=== PATIENT | female | born 1980 | race Caucasian/White ===

== ENCOUNTER 2019-03-19 13:23 | Emergency (ER) | payer MEDICAID ==
[~2019-03-19] VITALS: Ht 165.1 cm; Wt 109.0 kg
[~2019-03-19 13:23] MED LIST: BACI3.5O2 TOP; CETI10TA15 PO; CYCL-394 PO; DICY10CA88 PO; DOCU250C88 PO; GABA-532 PO; HALO10TA13 PO; HALO20TA7 PO; IBUP-1984 PO; LEVO150T PO; METF500T PO; MULT-1179 PO; NITR100C6 PO; ONDA4TAB6 PO; OXCA600T9 PO; SUMA25TA35 PO; TOPI200T PO; VENL150T3 PO
[2019-03-19] MEDS ORDERED: HYDROcodone/acetaminophen 5mg/325mg tablet PO ONE (13:40)
[2019-03-19] MEDS ORDERED: ketorolac trometh inj. 60 MG/2 ML VIAL IM ONE (13:40)
[2019-03-19 14:04] VITALS: BP 118/89
== END 2019-03-19 14:40 | disposition home or self-care (01) ==
LOC: ER 13:24
DX: G89.18 Other acute postprocedural pain (principal); R10.12 Left upper quadrant pain; G43.909 Migraine, unspecified, not intractable, without status migrainosus; I48.91 Unspecified atrial fibrillation; E11.9 Type 2 diabetes mellitus without complications; E03.9 Hypothyroidism, unspecified; G89.29 Other chronic pain; F12.90 Cannabis use, unspecified, uncomplicated; F15.90 Other stimulant use, unspecified, uncomplicated; Z90.49 Acquired absence of other specified parts of digestive tract; Z90.81 Acquired absence of spleen; Z90.411 Acquired partial absence of pancreas; Z98.890 Other specified postprocedural states; Z98.51 Tubal ligation status; Z88.2 Allergy status to sulfonamides; Z88.0 Allergy status to penicillin; Z88.8 Allergy status to other drugs, medicaments and biological substances; Z91.013 Allergy to seafood; Z91.018 Allergy to other foods; Z79.84 Long term (current) use of oral hypoglycemic drugs; Z79.899 Other long term (current) drug therapy
CPT/HCPCS: 96372; 99283; J1885

== ENCOUNTER 2019-12-30 16:16 | Emergency (ER) | payer MEDICAID ==
[~2019-12-30] VITALS: Ht 167.6 cm; Wt 129.0 kg
[2019-12-30 16:44] VITALS: BP 110/66
[2019-12-30 17:22] LABS: BASOPHILS # (AUTO) 0.3 X10'3 (0-0.2); BASOPHILS % (AUTO) 1.5 % (0-1); EOSINOPHILS # (AUTO) 0.6 X10'3 (0-0.9); EOSINOPHILS % (AUTO) 3.2 % (0-6); HEMATOCRIT 44.4 % (35.0-45.0); HEMOGLOBIN 14.9 g/dl (12.0-16.0); LYMPHOCYTES % (AUTO) 29.6 % (21-51); MEAN CORPUSCULAR HEMOGLOBIN 30.2 PG (27.0-31.0); MEAN CORPUSCULAR HGB CONC 33.5 g/dL (33.0-36.5); MEAN CORPUSCULAR VOLUME 90.1 FL (78-98); MEAN PLATELET VOLUME 8.4 FL (7.4-10.4); MONOCYTES % (AUTO) 9.9 % (2-12); NEUTROPHILS # (AUTO) 11.2 X10'3 (1.8-7.7); NEUTROPHILS % (AUTO) 55.8 % (42-75); PLATELET COUNT 456 X10'3 (140-440); RED BLOOD COUNT 4.92 X10'6 (4.20-5.60); RED CELL DISTRIBUTION WIDTH 14.1 % (11.5-14.5); WHITE BLOOD COUNT 20.2 X10'3 (4.5-11.0)
[2019-12-30 17:34] LABS: ALANINE AMINOTRANSFERASE 25 U/L (12-78); ALBUMIN 3.2 G/DL (3.4-5.0); ALBUMIN/GLOBULIN RATIO 0.7 (1.1-1.5); ALKALINE PHOSPHATASE 79 IU/L (46-116); ANION GAP 8 (8-16); ASPARTATE AMINO TRANSFERASE 15 U/L (10-37); BILIRUBIN,TOTAL 0.3 MG/DL (0.1-1.0); BLOOD UREA NITROGEN 21 MG/DL (7-18); BUN/CREATININE RATIO 26.9 (6.6-38.0); CALCIUM 9.2 MG/DL (8.5-10.1); CHLORIDE 107 MMOL/L (99-107); CREATININE 0.78 MG/DL (0.40-0.90); GLUCOSE 72 MG/DL (70-104); POTASSIUM 3.7 MMOL/L (3.5-5.1); SODIUM 143 MMOL/L (135-145); TOTAL CARBON DIOXIDE 28.2 MMOL/L (24-32); TOTAL PROTEIN 7.8 G/DL (6.4-8.2); eGFR 82 ML/MIN
[2019-12-30 17:38] LABS: TROPONIN I < 0.04 NG/ML (0.0-0.05)
[2019-12-30 18:39] LABS: TOTAL CELLS COUNTED 100
[2019-12-30 18:41] LABS: PLATELET ESTIMATE INCREASED
[2019-12-30] MEDS ORDERED: metoclopramide 5 mg/ml inj IV ONE (18:45)
[2019-12-30] MEDS ORDERED: diphenhydrAMINE 50 mg/ml inj IV ONE (18:45)
[2019-12-30] MEDS ORDERED: morphine 10mg/ml inj. IV ONE (18:45)
--- NOTE | 2019-12-30 18:59 | NUR ---
PT WENT TO MRI. SHE RECEIVED MORPHINE, IV BENADRYL, AND IV REGLAN. SHE IS AOX3. SHE REPORTS A HEADACHE PAIN 8/10 RIGHT SIDE OF HER HEAD. SHE REPORTS NUMBNESS AND TINGLING ON HER RIGHT SIDE OF HER BODY BUT HAS FULL MOVEMENT.
[2019-12-30 19:09] LABS: PARTIAL THROMBOPLASTIN TIME 32 SECONDS (22-32)
[2019-12-30] MEDS ORDERED: LIDOcaine 1% 30ml preserv. free vial SQ STA (19:59)
== END 2019-12-30 21:56 | disposition home or self-care (01) ==
LOC: ER 16:17
DX: G43.909 Migraine, unspecified, not intractable, without status migrainosus (principal); G44.209 Tension-type headache, unspecified, not intractable; I48.91 Unspecified atrial fibrillation; E11.9 Type 2 diabetes mellitus without complications; E03.9 Hypothyroidism, unspecified; G89.29 Other chronic pain; F41.9 Anxiety disorder, unspecified; F31.9 Bipolar disorder, unspecified; M54.2 Cervicalgia; F41.0 Panic disorder [episodic paroxysmal anxiety]; F20.9 Schizophrenia, unspecified; F12.90 Cannabis use, unspecified, uncomplicated; F15.90 Other stimulant use, unspecified, uncomplicated; Z90.49 Acquired absence of other specified parts of digestive tract; Z98.51 Tubal ligation status; Z98.890 Other specified postprocedural states; Z88.2 Allergy status to sulfonamides; Z88.0 Allergy status to penicillin; Z91.048 Other nonmedicinal substance allergy status; Z91.013 Allergy to seafood; Z79.899 Other long term (current) drug therapy
CPT/HCPCS: 36415; 64405; 64450; 70450; 70544; 70551; 71045; 80053; 84484; 85025; 85610; 85730; 93005; 96374; 96375; 99285; J1200; J2270; J2765; 99284

== ENCOUNTER 2020-06-10 13:18 | Emergency (ER) | payer MEDICAID ==
[~2020-06-10] VITALS: Ht 167.6 cm; Wt 136.0 kg
[~2020-06-10 13:18] MED LIST changes: -DOCU250C88 PO; +DOCU250C89 PO
--- NOTE | 2020-06-10 14:02 | NUR ---
Ultra sound at bedside.
[2020-06-10 14:12] LABS: BASOPHILS % (AUTO) 0.3 % (0-1); EOSINOPHILS # (AUTO) 0.3 X10'3 (0-0.9); EOSINOPHILS % (AUTO) 2.3 % (0-6); HEMATOCRIT 43.8 % (35.0-45.0); HEMOGLOBIN 14.6 g/dl (12.0-16.0); LYMPHOCYTES # (AUTO) 3.1 X10'3 (1.1-4.8); LYMPHOCYTES % (AUTO) 22.9 % (21-51); MEAN CORPUSCULAR HEMOGLOBIN 30.6 PG (27.0-31.0); MEAN CORPUSCULAR HGB CONC 33.4 g/dL (33.0-36.5); MEAN CORPUSCULAR VOLUME 91.4 FL (78-98); MEAN PLATELET VOLUME 9.5 FL (7.4-10.4); MONOCYTES # (AUTO) 1.4 X10'3 (0-0.9); MONOCYTES % (AUTO) 10.2 % (2-12); NEUTROPHILS # (AUTO) 8.7 X10'3 (1.8-7.7); NEUTROPHILS % (AUTO) 64.3 % (42-75); PLATELET COUNT 404 X10'3 (140-440); RED BLOOD COUNT 4.79 X10'6 (4.20-5.60); RED CELL DISTRIBUTION WIDTH 14.2 % (11.5-14.5); WHITE BLOOD COUNT 13.6 X10'3 (4.5-11.0)
[2020-06-10 14:23] LABS: D-DIMER 0.21 MG/L FEU (0-0.50); PARTIAL THROMBOPLASTIN TIME 30 SECONDS (22-32)
[2020-06-10 14:34] LABS: ALANINE AMINOTRANSFERASE 36 U/L (12-78); ALBUMIN 2.7 G/DL (3.4-5.0); ALBUMIN/GLOBULIN RATIO 0.6 (1.1-1.5); ALKALINE PHOSPHATASE 95 IU/L (46-116); ANION GAP 10 (8-16); ASPARTATE AMINO TRANSFERASE 16 U/L (10-37); BILIRUBIN,TOTAL 0.2 MG/DL (0.1-1.0); BLOOD UREA NITROGEN 11 MG/DL (7-18); BUN/CREATININE RATIO 9.6 (6.6-38.0); CALCIUM 8.6 MG/DL (8.5-10.1); CHLORIDE 96 MMOL/L (99-107); CREATININE 1.14 MG/DL (0.40-0.90); MAGNESIUM 1.3 MG/DL (1.5-2.4); POTASSIUM 4.1 MMOL/L (3.5-5.1); SODIUM 132 MMOL/L (135-145); TOTAL PROTEIN 7.6 G/DL (6.4-8.2); eGFR 53 ML/MIN
[2020-06-10 14:36] LABS: GLUCOSE 509 MG/DL (70-104)
[2020-06-10] MEDS ORDERED: normal saline 1000ML IV soln IVB ONE ×2 (14:40→16:05)
[2020-06-10] MEDS ORDERED: insulin regular, human 10 units/0.1 ml syringe SQ ONE (14:40)
[2020-06-10] MEDS ORDERED: insulin regular, human U-100 3ml vial - multi-dose SQ ONE ×2 (14:45→16:05)
[2020-06-10] MEDS ORDERED: HYDROcodone/acetaminophen 5mg/325mg tablet PO ONE (15:25)
[2020-06-10] MEDS ORDERED: ondansetron 4mg rapidly disintigrating tab PO ONE (15:25)
--- NOTE | 2020-06-10 15:55 | NUR ---
notified drill sharpener operator starkey regarding pt bld sugar 463,pt second bag of iv n.s bolus started ,drill sharpener operator is aware no orders yet.
[2020-06-10 16:48] LABS: CLARITY,URINE SLIGHTLY CLOUDY (Clear); COLOR,URINE YELLOW (Yellow); GLUCOSE, URINE >=1000 mg/dl (Neg); KETONES,URINE NEGATIVE (Neg); LEUKOCYTE ESTERASE ,URINE NEGATIVE (Neg); NITRITES, URINE POSITIVE (Neg); OCCULT BLOOD,URINE NEGATIVE (Neg); PH,URINE 5.5 (4.8-8.0); PROTEIN,URINE NEGATIVE (Neg); UROBILINOGEN,URINE 0.2 E.U/dL (0.2-1.0)
[2020-06-10 16:52] LABS: URINE HCG NEGATIVE (NEG)
[2020-06-10 16:55] LABS: UA COLLECTION TYPE VOIDED
[2020-06-10 16:57] LABS: BACTERIA,URINE 4+ /HPF (Neg); RBC,URINE NONE SEEN /HPF (0-2); SQUAMOUS EPITHELIAL CELL,UR FEW /LPF (FEW); WBC CLUMPS,URINE FEW /HPF (NEGATIVE); WBC,URINE 0-4 /HPF (0-4)
[2020-06-10] MEDS ORDERED: CEPH500C5 PO (17:29)
[2020-06-10 17:46] VITALS: BP 126/91
== END 2020-06-10 17:49 | disposition home or self-care (01) ==
LOC: ER 13:18
DX: E11.65 Type 2 diabetes mellitus with hyperglycemia (principal); N39.0 Urinary tract infection, site not specified; M79.605 Pain in left leg; R53.1 Weakness; G43.909 Migraine, unspecified, not intractable, without status migrainosus; I48.91 Unspecified atrial fibrillation; E03.9 Hypothyroidism, unspecified; G89.29 Other chronic pain; F41.9 Anxiety disorder, unspecified; F31.9 Bipolar disorder, unspecified; F20.9 Schizophrenia, unspecified; F12.90 Cannabis use, unspecified, uncomplicated; F15.90 Other stimulant use, unspecified, uncomplicated; Z86.69 Personal history of other diseases of the nervous system and sense organs; Z90.49 Acquired absence of other specified parts of digestive tract; Z98.51 Tubal ligation status; Z98.890 Other specified postprocedural states; Z72.89 Other problems related to lifestyle; Z88.0 Allergy status to penicillin; Z91.013 Allergy to seafood; Z88.2 Allergy status to sulfonamides; Z88.8 Allergy status to other drugs, medicaments and biological substances; Z91.018 Allergy to other foods; Z88.1 Allergy status to other antibiotic agents; Z88.6 Allergy status to analgesic agent; Z79.2 Long term (current) use of antibiotics; Z79.899 Other long term (current) drug therapy
CPT/HCPCS: 36415; 80053; 81001; 81025; 82948; 83735; 83880; 85025; 85379; 85610; 85730; 87077; 87088; 87186; 93971; 96360; 96361; 96372; 99285; J7030; J1815

== ENCOUNTER 2020-10-04 18:34 | Emergency (ER) | payer MEDICAID ==
[~2020-10-04] VITALS: Ht 167.6 cm; Wt 140.0 kg
[2020-10-04 22:05] VITALS: BP 120/70
== END 2020-10-04 22:09 | disposition home or self-care (01) ==
LOC: ER 18:35
DX: R53.1 Weakness (principal); G43.909 Migraine, unspecified, not intractable, without status migrainosus; I48.91 Unspecified atrial fibrillation; E11.9 Type 2 diabetes mellitus without complications; E07.89 Other specified disorders of thyroid; G89.29 Other chronic pain; M54.9 Dorsalgia, unspecified; F31.9 Bipolar disorder, unspecified; F20.9 Schizophrenia, unspecified; F12.10 Cannabis abuse, uncomplicated; F15.10 Other stimulant abuse, uncomplicated; Z90.49 Acquired absence of other specified parts of digestive tract; Z98.890 Other specified postprocedural states; Z88.2 Allergy status to sulfonamides; Z88.8 Allergy status to other drugs, medicaments and biological substances; Z91.013 Allergy to seafood; Z79.899 Other long term (current) drug therapy
CPT/HCPCS: 93005; 99283

== ENCOUNTER 2020-10-30 17:04 | Emergency (ER) | payer MEDICAID ==
[~2020-10-30] VITALS: Ht 167.6 cm; Wt 140.0 kg
[2020-10-30] MEDS ORDERED: ondansetron 4mg rapidly disintigrating tab PO ONE (18:25)
== END 2020-10-30 18:40 | disposition home or self-care (01) ==
LOC: ER 17:04
DX: B34.9 Viral infection, unspecified (principal); R11.2 Nausea with vomiting, unspecified; R19.7 Diarrhea, unspecified; R06.02 Shortness of breath; Z20.828 Contact with and (suspected) exposure to other viral communicable diseases; G43.909 Migraine, unspecified, not intractable, without status migrainosus; I48.91 Unspecified atrial fibrillation; I25.10 Atherosclerotic heart disease of native coronary artery without angina pectoris; E11.9 Type 2 diabetes mellitus without complications; E03.9 Hypothyroidism, unspecified; G89.29 Other chronic pain; F41.9 Anxiety disorder, unspecified; F31.9 Bipolar disorder, unspecified; F17.200 Nicotine dependence, unspecified, uncomplicated; F12.90 Cannabis use, unspecified, uncomplicated; F15.90 Other stimulant use, unspecified, uncomplicated; Z86.69 Personal history of other diseases of the nervous system and sense organs; Z90.49 Acquired absence of other specified parts of digestive tract; Z98.51 Tubal ligation status; Z98.890 Other specified postprocedural states; Z72.89 Other problems related to lifestyle; Z88.2 Allergy status to sulfonamides; Z88.0 Allergy status to penicillin; Z91.013 Allergy to seafood; Z91.018 Allergy to other foods; Z88.1 Allergy status to other antibiotic agents; Z79.2 Long term (current) use of antibiotics; Z79.899 Other long term (current) drug therapy
CPT/HCPCS: 36415; 87635; 99283

== ENCOUNTER 2021-01-18 16:05 | Emergency (ER) | payer MEDICAID ==
[~2021-01-18] VITALS: Ht 167.6 cm; Wt 138.6 kg
[2021-01-18] MEDS ORDERED: normal saline 1000ML IV soln IVB ONE ×2 (16:30→18:30)
[2021-01-18] MEDS ORDERED: normal saline 1000ml 1,000 ML IV ONE (16:30)
[2021-01-18 17:27] LABS: BASOPHILS # (AUTO) 0.1 X10'3 (0-0.2); BASOPHILS % (AUTO) 0.4 % (0-1); EOSINOPHILS # (AUTO) 0.3 X10'3 (0-0.9); LYMPHOCYTES # (AUTO) 3.4 X10'3 (1.1-4.8)
[2021-01-18 17:29] LABS: HEMATOCRIT 44.5 % (35.0-45.0); HEMOGLOBIN 14.9 g/dl (12.0-16.0); LYMPHOCYTES % (AUTO) 20.4 % (21-51); MEAN CORPUSCULAR HEMOGLOBIN 30.2 PG (27.0-31.0); MEAN CORPUSCULAR HGB CONC 33.5 g/dL (33.0-36.5); MEAN CORPUSCULAR VOLUME 90.1 FL (78-98); MEAN PLATELET VOLUME 9.9 FL (7.4-10.4); MONOCYTES # (AUTO) 1.6 X10'3 (0-0.9); MONOCYTES % (AUTO) 9.6 % (2-12); NEUTROPHILS # (AUTO) 11.2 X10'3 (1.8-7.7); NEUTROPHILS % (AUTO) 67.6 % (42-75); PLATELET COUNT 382 X10'3 (140-440); RED BLOOD COUNT 4.95 X10'6 (4.20-5.60); RED CELL DISTRIBUTION WIDTH 13.7 % (11.5-14.5); WHITE BLOOD COUNT 16.6 X10'3 (4.5-11.0)
[2021-01-18 17:32] LABS: CLARITY,URINE SLIGHTLY CLOUDY (Clear); COLOR,URINE STRAW (Yellow); GLUCOSE, URINE >=1000 mg/dl (Neg); KETONES,URINE NEGATIVE (Neg); LEUKOCYTE ESTERASE ,URINE NEGATIVE (Neg); NITRITES, URINE POSITIVE (Neg); OCCULT BLOOD,URINE NEGATIVE (Neg); PH,URINE 5.5 (4.8-8.0); PROTEIN,URINE NEGATIVE (Neg); UROBILINOGEN,URINE 0.2 E.U/dL (0.2-1.0)
[2021-01-18 17:38] LABS: UA COLLECTION TYPE CLN CATCH MIDSTREAM
[2021-01-18 17:40] LABS: SQUAMOUS EPITHELIAL CELL,UR MODERATE /LPF (FEW)
[2021-01-18 17:41] LABS: PARTIAL THROMBOPLASTIN TIME 29 SECONDS (22-32)
[2021-01-18 17:41] LABS: BACTERIA,URINE 4+ /HPF (Neg); WBC,URINE 0-4 /HPF (0-4); YEAST MANY /HPF (NEGATIVE)
[2021-01-18 17:42] LABS: RBC,URINE 0-2 /HPF (0-2)
[2021-01-18 17:43] LABS: ALANINE AMINOTRANSFERASE 27 U/L (12-78); ALBUMIN 2.6 G/DL (3.4-5.0); ALBUMIN/GLOBULIN RATIO 0.4 (1.1-1.5); ALKALINE PHOSPHATASE 118 IU/L (46-116); ANION GAP 8 (8-16); ASPARTATE AMINO TRANSFERASE 16 U/L (10-37); BILIRUBIN,TOTAL 0.2 MG/DL (0.1-1.0); BLOOD UREA NITROGEN 21 MG/DL (7-18); BUN/CREATININE RATIO 23.6 (6.6-38.0); CALCIUM 9.4 MG/DL (8.5-10.1); CHLORIDE 97 MMOL/L (99-107); CREATININE 0.89 MG/DL (0.40-0.90); GLUCOSE 385 MG/DL (70-104); LIPASE 234 U/L (73-393); MAGNESIUM 1.6 MG/DL (1.5-2.4); POTASSIUM 3.9 MMOL/L (3.5-5.1); SODIUM 135 MMOL/L (135-145); TOTAL CARBON DIOXIDE 29.9 MMOL/L (24-32); TOTAL PROTEIN 8.4 G/DL (6.4-8.2); eGFR 70 ML/MIN
[2021-01-18 17:45] LABS: ETHANOL < 0.010 GM/DL (0.0-0.010)
[2021-01-18 17:53] LABS: URINE AMPHETAMINE SCREEN POSITIVE (Neg); URINE BARBITUATE SCREEN NEGATIVE (Neg); URINE BENZODIAZEPINES SCREEN NEGATIVE (Neg); URINE CANNABINOID SCREEN NEGATIVE (Neg); URINE COCAINE SCREEN NEGATIVE (Neg); URINE METHADONE SCREEN NEGATIVE (Neg); URINE OPIATE SCREEN NEGATIVE (Neg); URINE PHENCYCLIDINE SCREEN NEGATIVE (Neg)
[2021-01-18] MEDS ORDERED: insulin regular, human 10 units/0.1 ml syringe SQ ONE (18:35)
[2021-01-18] MEDS ORDERED: NITR100C6 PO (18:38)
[2021-01-18] MEDS ORDERED: nitrofuran/nitrofuran macrocrysal 100 MG capsule PO ONE (18:40)
[2021-01-18] MEDS ORDERED: magnesium oxide 400mg tablet PO ONE (18:40)
[2021-01-18 18:52] VITALS: BP 123/89
== END 2021-01-18 18:53 | disposition home or self-care (01) ==
LOC: ER 16:05
DX: N39.0 Urinary tract infection, site not specified (principal); E11.65 Type 2 diabetes mellitus with hyperglycemia; R00.0 Tachycardia, unspecified; M79.605 Pain in left leg; R25.2 Cramp and spasm; G43.909 Migraine, unspecified, not intractable, without status migrainosus; I48.91 Unspecified atrial fibrillation; I25.10 Atherosclerotic heart disease of native coronary artery without angina pectoris; E03.9 Hypothyroidism, unspecified; F12.90 Cannabis use, unspecified, uncomplicated; F15.90 Other stimulant use, unspecified, uncomplicated; G89.29 Other chronic pain; Z90.49 Acquired absence of other specified parts of digestive tract; Z98.51 Tubal ligation status; Z72.89 Other problems related to lifestyle; Z79.899 Other long term (current) drug therapy; Z88.0 Allergy status to penicillin; Z91.013 Allergy to seafood; Z91.018 Allergy to other foods; Z91.041 Radiographic dye allergy status; Z91.048 Other nonmedicinal substance allergy status; Z88.8 Allergy status to other drugs, medicaments and biological substances
CPT/HCPCS: 36415; 71045; 80053; 80305; 80320; 81001; 83690; 83735; 84484; 85025; 85610; 85730; 87077; 87088; 87186; 93005; 96360; 96372; 99285; J1815; J7030

== ENCOUNTER 2021-08-30 16:46 | Emergency (ER) | payer MEDICAID ==
[~2021-08-30] VITALS: Ht 165.1 cm; Wt 134.1 kg
[2021-08-30 19:14] LABS: BASOPHILS # (AUTO) 0.5 X10'3 (0-0.2); BASOPHILS % (AUTO) 1.9 % (0-1); EOSINOPHILS # (AUTO) 0.3 X10'3 (0-0.9); EOSINOPHILS % (AUTO) 1.1 % (0-6); HEMATOCRIT 43.9 % (35.0-45.0); HEMOGLOBIN 14.2 g/dl (12.0-16.0); LYMPHOCYTES # (AUTO) 2.2 X10'3 (1.1-4.8); LYMPHOCYTES % (AUTO) 8.8 % (21-51); MEAN CORPUSCULAR HEMOGLOBIN 29.6 PG (27.0-31.0); MEAN CORPUSCULAR HGB CONC 32.3 g/dL (33.0-36.5); MEAN CORPUSCULAR VOLUME 91.4 FL (78-98); MEAN PLATELET VOLUME 9.5 FL (7.4-10.4); MONOCYTES % (AUTO) 4.1 % (2-12); NEUTROPHILS # (AUTO) 20.9 X10'3 (1.8-7.7); NEUTROPHILS % (AUTO) 84.1 % (42-75); PLATELET COUNT 407 X10'3 (140-440); WHITE BLOOD COUNT 24.8 X10'3 (4.5-11.0)
[2021-08-30 19:22] LABS: ALANINE AMINOTRANSFERASE 21 U/L (12-78); ALBUMIN 2.7 G/DL (3.4-5.0); ALBUMIN/GLOBULIN RATIO 0.6 (1.1-1.5); ALKALINE PHOSPHATASE 107 IU/L (46-116); ANION GAP 9 (8-16); ASPARTATE AMINO TRANSFERASE 10 U/L (10-37); BILIRUBIN,TOTAL 0.2 MG/DL (0.1-1.0); BLOOD UREA NITROGEN 13 MG/DL (7-18); BUN/CREATININE RATIO 18.1 (6.6-38.0); CALCIUM 8.7 MG/DL (8.5-10.1); CHLORIDE 108 MMOL/L (99-107); CREATININE 0.72 MG/DL (0.40-0.90); GLUCOSE 131 MG/DL (70-104); POTASSIUM 3.7 MMOL/L (3.5-5.1); SODIUM 143 MMOL/L (135-145); TOTAL CARBON DIOXIDE 25.9 MMOL/L (24-32); TOTAL PROTEIN 7.4 G/DL (6.4-8.2); eGFR 89 ML/MIN
[2021-08-30 20:19] VITALS: BP 136/85
[2021-08-30 20:25] LABS: TOTAL CELLS COUNTED 100
[2021-08-30 20:26] LABS: ANISOCYTOSIS 1+; BURR CELLS FEW; PLATELET ESTIMATE NORMAL
== END 2021-08-30 20:22 | disposition home or self-care (01) ==
LOC: ER 16:46
DX: E11.649 Type 2 diabetes mellitus with hypoglycemia without coma (principal); G43.909 Migraine, unspecified, not intractable, without status migrainosus; R42 Dizziness and giddiness; R53.1 Weakness; I48.91 Unspecified atrial fibrillation; I25.10 Atherosclerotic heart disease of native coronary artery without angina pectoris; G89.29 Other chronic pain; F41.9 Anxiety disorder, unspecified; F32.9 Major depressive disorder, single episode, unspecified; F12.90 Cannabis use, unspecified, uncomplicated; F15.90 Other stimulant use, unspecified, uncomplicated; Z86.69 Personal history of other diseases of the nervous system and sense organs; Z87.440 Personal history of urinary (tract) infections; Z20.9 Contact with and (suspected) exposure to unspecified communicable disease; Z90.49 Acquired absence of other specified parts of digestive tract; Z98.51 Tubal ligation status; Z98.890 Other specified postprocedural states; Z72.89 Other problems related to lifestyle; Z88.2 Allergy status to sulfonamides; Z88.0 Allergy status to penicillin; Z88.8 Allergy status to other drugs, medicaments and biological substances; Z91.013 Allergy to seafood; Z91.018 Allergy to other foods; Z88.1 Allergy status to other antibiotic agents; Z79.899 Other long term (current) drug therapy
CPT/HCPCS: 36415; 80053; 82948; 85007; 85025; 99283

== ENCOUNTER 2021-10-04 06:34 | Inpatient (IN) | payer MEDICAID ==
[~2021-10-04] VITALS: Ht 165.1 cm; Wt 127.0 kg
[2021-10-04] MEDS ORDERED: dextrose 5%-normal saline 1,000 ML IV ONE (06:50)
[2021-10-04] MEDS ORDERED: dextrose 50%-water 50ml dispensing syringe IV ONE ×4 (06:55→12:10)
[2021-10-04 07:31] LABS: BASOPHILS # (AUTO) 0.1 X10'3 (0-0.2); BASOPHILS % (AUTO) 0.3 % (0-1); EOSINOPHILS # (AUTO) 0.1 X10'3 (0-0.9); EOSINOPHILS % (AUTO) 0.4 % (0-6); HEMATOCRIT 44.5 % (35.0-45.0); HEMOGLOBIN 14.9 g/dl (12.0-16.0); LYMPHOCYTES # (AUTO) 1.5 X10'3 (1.1-4.8); LYMPHOCYTES % (AUTO) 7.6 % (21-51); MEAN CORPUSCULAR HEMOGLOBIN 30.1 PG (27.0-31.0); MEAN CORPUSCULAR HGB CONC 33.5 g/dL (33.0-36.5); MEAN PLATELET VOLUME 8.8 FL (7.4-10.4); MONOCYTES # (AUTO) 1.7 X10'3 (0-0.9); MONOCYTES % (AUTO) 8.8 % (2-12); NEUTROPHILS % (AUTO) 82.9 % (42-75); PLATELET COUNT 397 X10'3 (140-440); RED BLOOD COUNT 4.95 X10'6 (4.20-5.60); RED CELL DISTRIBUTION WIDTH 14.2 % (11.5-14.5); WHITE BLOOD COUNT 19.2 X10'3 (4.5-11.0)
[2021-10-04 07:52] LABS: ALANINE AMINOTRANSFERASE 34 U/L (12-78); ALBUMIN 2.8 G/DL (3.4-5.0); ALBUMIN/GLOBULIN RATIO 0.5 (1.1-1.5); ALKALINE PHOSPHATASE 102 IU/L (46-116); ANION GAP 8 (8-16); ASPARTATE AMINO TRANSFERASE 18 U/L (10-37); BILIRUBIN,TOTAL 0.3 MG/DL (0.1-1.0); BLOOD UREA NITROGEN 21 MG/DL (7-18); BUN/CREATININE RATIO 25.6 (6.6-38.0); CALCIUM 8.8 MG/DL (8.5-10.1); CHLORIDE 107 MMOL/L (99-107); CREATININE 0.82 MG/DL (0.40-0.90); GLUCOSE 94 MG/DL (70-104); POTASSIUM 3.1 MMOL/L (3.5-5.1); SODIUM 142 MMOL/L (135-145); TOTAL CARBON DIOXIDE 26.6 MMOL/L (24-32); eGFR 77 ML/MIN
[2021-10-04] MEDS ORDERED: sodium chloride inj. 154 MEQ in Dextrose 10%-water IV solution 961.5 ML IV ONE (09:20)
[2021-10-04] MEDS ORDERED: iohexol 300mg/ml 100ml inj. ONE (09:56)
[2021-10-04] MEDS ORDERED: diphenhydrAMINE 50 mg/ml inj IV ONE (10:50)
[2021-10-04] MEDS ORDERED: methylPREDNISolone sod succ 125mg/2ml vial IV ONE (10:50)
[2021-10-04] MEDS ORDERED: sodium chloride inj. 154 MEQ in Dextrose 10%-water IV solution 961.5 ML IV SCH (16:20)
[2021-10-04 16:31] LABS: CLARITY,URINE CLOUDY (Clear); COLOR,URINE YELLOW (Yellow); GLUCOSE, URINE NEGATIVE (Neg); KETONES,URINE NEGATIVE (Neg); NITRITES, URINE POSITIVE (Neg); OCCULT BLOOD,URINE NEGATIVE (Neg); PROTEIN,URINE NEGATIVE (Neg); UA COLLECTION TYPE CLN CATCH MIDSTREAM; UROBILINOGEN,URINE 0.2 E.U/dL (0.2-1.0)
[2021-10-04 16:32] LABS: LEUKOCYTE ESTERASE ,URINE NEGATIVE (Neg)
[2021-10-04 16:33] LABS: BACTERIA,URINE 4+ /HPF (Neg); RBC,URINE NONE SEEN /HPF (0-2); SQUAMOUS EPITHELIAL CELL,UR FEW /LPF (FEW); WBC,URINE 0-4 /HPF (0-4)
[2021-10-04] MEDS ORDERED: octreotide 100mcg/1 ml ampule IV ONE (16:40)
[2021-10-04] MEDS: Dextrose 10%-water IV solution 1,000 ML IV SCH ×2 (17:12→21:04)
--- NOTE | 2021-10-04 18:38 | NUR ---
Pt's D10 dropped to 100ml/hr rate per doctor.
[2021-10-04] MEDS ORDERED: NITR0.4T48 SL (23:28)
[2021-10-04] MEDS ORDERED: POTA10CA44 PO (23:28)
[2021-10-04] MEDS ORDERED: INSU100V40 SQ (23:28)
[2021-10-04] MEDS ORDERED: OMEP-50 PO (23:28)
[2021-10-04] MEDS ORDERED: FURO20TA4 PO (23:28)
[2021-10-04] MEDS ORDERED: VENL150C58 PO (23:28)
[2021-10-04] MEDS ORDERED: INSU100V51 SQ (23:28)
[2021-10-04] MEDS ORDERED: ATOR40TA72 PO (23:28)
[2021-10-04] MEDS ORDERED: MAGN400T56 PO (23:37)
[2021-10-04] MEDS ORDERED: CHOL100025 PO (23:53)
[2021-10-04] MEDS ORDERED: LIPA1CAP18 PO (23:53)
[2021-10-04] MEDS ORDERED: GABA300C PO (23:53)
[2021-10-04] MEDS ORDERED: LEVO112T39 PO (23:53)
[2021-10-04] MEDS ORDERED: CYCL5TAB PO (23:53)
[2021-10-04] MEDS ORDERED: ERGO500054 PO (23:53)
[2021-10-04] MEDS ORDERED: ALBU8HFA IH (23:53)
[2021-10-04] MEDS ORDERED: TOP100T PO (23:53)
[2021-10-05] MEDS ORDERED: cyclobenzaprine 10mg tablet PO PRN (00:45)
[2021-10-05] MEDS ORDERED: albuterol 2.5 MG/3 ML nebule NEB PRN (00:45)
[2021-10-05] MEDS ORDERED: acetaminophen 650mg rectal suppository RC PRN (00:55)
[2021-10-05] MEDS ORDERED: potassium Cl 40MEQ/1/2NS 520ml 520 ML IV PRN ×2 (00:55)
[2021-10-05] MEDS ORDERED: HYDROcodone/acetaminophen 5mg/325mg tablet PO PRN (00:55)
[2021-10-05] MEDS ORDERED: acetaminophen 325mg tablet PO PRN ×2 (00:55)
[2021-10-05] MEDS ORDERED: ondansetron 4mg rapidly disintigrating tab PO PRN (00:55)
[2021-10-05] MEDS ORDERED: diphenhydrAMINE 25mg capsule PO PRN (00:55)
[2021-10-05] MEDS ORDERED: bisacodyl 10mg suppository rectal RC PRN (00:55)
[2021-10-05] MEDS ORDERED: morphine 2 MG/ML inj. syringe IV PRN ×2 (00:55)
[2021-10-05] MEDS ORDERED: diphenhydrAMINE 50 mg/ml inj IV PRN (00:55)
[2021-10-05] MEDS ORDERED: ondansetron/PF 4mg/2ml inj IV PRN (00:55)
[2021-10-05] MEDS ORDERED: potassium Cl 20 mEq SR tablet PO PRN ×2 (00:55)
[2021-10-05] MEDS ORDERED: mag hydrox/Alum hydrox/simeth 30ml oral suspension PO PRN (00:55)
[2021-10-05] MEDS ORDERED: HYDROcodone/acetaminophen 10/325mg tab PO PRN (00:55)
[2021-10-05] MEDS ORDERED: magnesium hydroxide 30ml (MOM) UD suspension PO PRN (00:55)
[2021-10-05] MEDS ORDERED: glucagon, human recombinant 1mg kit SUBCUT PRN (01:00)
[2021-10-05] MEDS ORDERED: acetaminophen 325mg tablet PO ONE (01:00)
[2021-10-05] MEDS ORDERED: MESSAGE TO PHARMACY PO ONE (01:00)
[2021-10-05] MEDS ORDERED: insulin Lispro (HumaLOG) vial - multi-dose SQ SCH (01:00)
[2021-10-05] MEDS ORDERED: dextrose ORAL solution 15 GM/59 ML bottle PO PRN ×2 (01:00)
[2021-10-05] MEDS ORDERED: dextrose 50%-water 50ml dispensing syringe IV PRN ×2 (01:00)
[2021-10-05] MEDS: Dextrose 10%-water IV solution 1,000 ML IV SCH (02:25)
[2021-10-05 04:03] LABS: LIPASE 73 U/L (73-393); MAGNESIUM 1.9 MG/DL (1.5-2.4)
[2021-10-05 04:04] LABS: HEMOGLOBIN A1C 9.7 % (4.5-6.2)
[2021-10-05 04:05] LABS: CREATINE KINASE 119 U/L (26-192); PHOSPHORUS 4.1 MG/DL (2.3-4.5)
[2021-10-05] MEDS ORDERED: non-formulary drug (Omeprazole 1 CAP) PO SCH (07:00)
[2021-10-05] MEDS ORDERED: pantoprazole 40mg Tablet.DR PO SCH (07:30)
[2021-10-05] MEDS ORDERED: LIPASE/PROTEASE/AMYLASE 10,500 units CAPSULE.DR PO SCH (08:00)
[2021-10-05] MEDS ORDERED: docusate sod 100mg capsule PO SCH (08:00)
[2021-10-05] MEDS ORDERED: levoTHYROXINE 112mcg tablet PO SCH (08:00)
[2021-10-05] MEDS ORDERED: haloperidol 5mg tablet PO SCH (08:00)
[2021-10-05] MEDS ORDERED: furosemide 20MG tablet PO SCH (08:00)
[2021-10-05] MEDS ORDERED: topiramate 100mg tablet PO SCH (08:00)
[2021-10-05] MEDS ORDERED: gabapentin 300mg capsule PO SCH (08:00)
[2021-10-05] MEDS ORDERED: magnesium oxide 400mg tablet PO SCH (08:00)
[2021-10-05] MEDS ORDERED: atorvastatin 20mg tablet PO SCH (08:00)
[2021-10-05] MEDS ORDERED: levoFLOXACIN-Levaquin 750MG/D5 150 ML IV SCH (08:00)
[2021-10-05] MEDS ORDERED: heparin, porcine 5000 units/ml vial SQ SCH (08:00)
[2021-10-05] MEDS ORDERED: venlafaxine XR 75mg capsule (Q24H) PO SCH (08:00)
[2021-10-05] MEDS ORDERED: K and/or MAG REPLACEMENT MC SCH (08:00)
[2021-10-05 08:50] LABS: PARTIAL THROMBOPLASTIN TIME 22 SECONDS (22-32)
--- NOTE | 2021-10-05 09:15 | NUR ---
dr mendez at bedside ,doing rounds ,informed that pt has taken oral meals ,[id number] pre breakfast ,doing accucheck q2 hr.
[2021-10-05 12:21] VITALS: BP 106/68
[2021-10-05 17:59] LABS: C-PEPTIDE, SERUM 0.3 ng/mL (1.1-4.4); INSULIN 10.3 uIU/mL (2.6-24.9)
[2021-10-05] MEDS ORDERED: lactobacillus rhamnosus 10,000 MMU CELLS/CAPSULE PO SCH (20:00)
[2021-10-05] MEDS ORDERED: temazepam 15mg capsule PO PRN (21:00)
== END 2021-10-05 12:21 | disposition home or self-care (01) | DRG 420 ==
LOC: ER 06:35 → ED HOLD 10-05 00:57
PROVIDERS: ADMIT Family Medicine; ATTEND Internal Medicine
PROC: BW211ZZ Computerized Tomography (CT Scan) of Abdomen and Pelvis using Low Osmolar Contrast (ICD-10-PCS; principal; 2021-10-04)
DX: E11.649 Type 2 diabetes mellitus with hypoglycemia without coma (principal); K76.0 Fatty (change of) liver, not elsewhere classified; E03.9 Hypothyroidism, unspecified; E66.01 Morbid (severe) obesity due to excess calories; I48.91 Unspecified atrial fibrillation; G43.909 Migraine, unspecified, not intractable, without status migrainosus; E78.5 Hyperlipidemia, unspecified; E87.6 Hypokalemia; F12.90 Cannabis use, unspecified, uncomplicated; F17.210 Nicotine dependence, cigarettes, uncomplicated; F20.9 Schizophrenia, unspecified; G89.29 Other chronic pain; M54.9 Dorsalgia, unspecified; F41.0 Panic disorder [episodic paroxysmal anxiety]; I10 Essential (primary) hypertension; F32.A Depression, unspecified; I25.10 Atherosclerotic heart disease of native coronary artery without angina pectoris; F41.9 Anxiety disorder, unspecified; N39.0 Urinary tract infection, site not specified; Z72.89 Other problems related to lifestyle; Z79.4 Long term (current) use of insulin; Z79.899 Other long term (current) drug therapy; Z90.81 Acquired absence of spleen; Z68.42 Body mass index [BMI] 45.0-49.9, adult; Z88.0 Allergy status to penicillin; Z88.2 Allergy status to sulfonamides; Z88.8 Allergy status to other drugs, medicaments and biological substances; Z91.041 Radiographic dye allergy status; Z90.49 Acquired absence of other specified parts of digestive tract; Z98.51 Tubal ligation status
CPT/HCPCS: 36415; 70450; 71045; 74177; 80053; 81001; 82550; 82948; 83036; 83525; 83690; 83735; 83880; 84100; 84145; 84443; 84484; 84681; 85025; 85610; 85730; 87077; 87088; 87186; 93005; 99291; 99292; G0378; J1200; J1644; J1815; J1956; J2354; J2930; J7042; J7131; Q9967

== ENCOUNTER 2022-01-09 15:50 | Inpatient (IN) | payer MEDICAID ==
[~2022-01-09] VITALS: Ht 165.1 cm; Wt 131.8 kg
[~2022-01-09 15:50] MED LIST changes: +ALBU8HFA IH; +ATOR40TA72 PO; -BACI3.5O2 TOP; -CETI10TA15 PO; +CHOL100025 PO; -CYCL-394 PO; +CYCL5TAB PO; -DICY10CA88 PO; -DOCU250C89 PO; +ERGO500054 PO; +FURO20TA4 PO; -GABA-532 PO; +GABA300C PO; -HALO20TA7 PO; -IBUP-1984 PO; +INSU100V40 SQ; +INSU100V51 SQ; +LEVO112T39 PO; -LEVO150T PO; +LIPA1CAP18 PO; +MAGN400T56 PO; -METF500T PO; -MULT-1179 PO; +NITR0.4T48 SL; -NITR100C6 PO; +OMEP20CA16 PO; -ONDA4TAB6 PO; -OXCA600T9 PO; +POTA10CA44 PO; -SUMA25TA35 PO; +TOP100T PO; -TOPI200T PO; +VENL150C58 PO; -VENL150T3 PO
[2022-01-09] MEDS ORDERED: normal saline 1000ML IV soln IV ONE (16:15)
[2022-01-09] MEDS ORDERED: tranexamic acid 100mg/ml inj. IV ONE (16:15)
[2022-01-09] MEDS ORDERED: pantoprazole IV 80 MG in normal saline 100ml IV soln 100 ML IV ONE (16:15)
[2022-01-09] MEDS ORDERED: TRANEXAMIC ACID 1 GM IN NACL,ISO-OS 100 ML IV ONE (16:25)
[2022-01-09] MEDS: pantoprazole 40MG/NS 100ML BAG 100 ML IV SCH ×2 (16:36→18:20)
[2022-01-09 17:03] LABS: BASOPHILS # (AUTO) 0.2 X10'3 (0-0.2); BASOPHILS % (AUTO) 1.1 % (0-1); EOSINOPHILS # (AUTO) 0.2 X10'3 (0-0.9); EOSINOPHILS % (AUTO) 1.3 % (0-6); HEMATOCRIT 45.9 % (35.0-45.0); LYMPHOCYTES # (AUTO) 2.8 X10'3 (1.1-4.8); MEAN CORPUSCULAR HEMOGLOBIN 29.5 PG (27.0-31.0); MEAN CORPUSCULAR HGB CONC 32.7 g/dL (33.0-36.5); MEAN CORPUSCULAR VOLUME 90.3 FL (78-98); MEAN PLATELET VOLUME 9.1 FL (7.4-10.4); MONOCYTES # (AUTO) 0.8 X10'3 (0-0.9); NEUTROPHILS # (AUTO) 11.4 X10'3 (1.8-7.7); NEUTROPHILS % (AUTO) 74.6 % (42-75); PLATELET COUNT 530 X10'3 (140-440); RED BLOOD COUNT 5.08 X10'6 (4.20-5.60); RED CELL DISTRIBUTION WIDTH 14.1 % (11.5-14.5); WHITE BLOOD COUNT 15.3 X10'3 (4.5-11.0)
--- NOTE | 2022-01-09 17:15 | NUR ---
IV infiltrated while in CT scanner; ER provider notified.
[2022-01-09] MEDS ORDERED: CefTRIAXone/D5W-Rocephin 1gm 50 ML IV ONE (17:20)
[2022-01-09 17:43] LABS: APTT 29 SECONDS (22-32)
[2022-01-09 19:26] LABS: URINE HCG NEGATIVE (NEG)
[2022-01-09 19:27] LABS: CLARITY,URINE SLIGHTLY CLOUDY (Clear); COLOR,URINE YELLOW (Yellow); GLUCOSE, URINE >=1000 mg/dl (Neg); KETONES,URINE TRACE mg/dl (Neg); LEUKOCYTE ESTERASE ,URINE NEGATIVE (Neg); NITRITES, URINE NEGATIVE (Neg); OCCULT BLOOD,URINE TRACE-INTACT (Neg); PH,URINE 5.5 (4.8-8.0); PROTEIN,URINE 100 mg/dl (Neg); UROBILINOGEN,URINE 0.2 E.U/dL (0.2-1.0)
[2022-01-09 19:30] LABS: UA COLLECTION TYPE NON-SPECIFIED
[2022-01-09 19:32] LABS: URINE AMPHETAMINE SCREEN NEGATIVE (Neg); URINE BARBITUATE SCREEN NEGATIVE (Neg); URINE BENZODIAZEPINES SCREEN NEGATIVE (Neg); URINE CANNABINOID SCREEN POSITIVE (Neg); URINE COCAINE SCREEN NEGATIVE (Neg); URINE METHADONE SCREEN NEGATIVE (Neg); URINE OPIATE SCREEN NEGATIVE (Neg); URINE PHENCYCLIDINE SCREEN NEGATIVE (Neg)
[2022-01-09 19:37] LABS: MUCUS STRANDS MODERATE /LPF (Neg); SQUAMOUS EPITHELIAL CELL,UR MANY /LPF (FEW)
[2022-01-09 19:39] LABS: AMORPHOUS URATES 1+; TRANSITIONAL EPI CELLS,URINE FEW /HPF
[2022-01-09 19:41] LABS: CELLULAR CAST 0-4 /LPF (NEGATIVE)
[2022-01-09 19:42] LABS: BACTERIA,URINE 1+ /HPF (Neg)
[2022-01-09 19:46] LABS: ALANINE AMINOTRANSFERASE 20 U/L (12-78); ALBUMIN 1.8 G/DL (3.4-5.0); ALBUMIN/GLOBULIN RATIO 0.7 (1.1-1.5); ALKALINE PHOSPHATASE 58 IU/L (46-116); ANION GAP 11 (8-16); ASPARTATE AMINO TRANSFERASE 9 U/L (10-37); BETA HCG,QUANTITATIVE < 1.0 mIU/ml; BILIRUBIN,TOTAL 0.2 MG/DL (0.1-1.0); BLOOD UREA NITROGEN 14 MG/DL (7-18); BUN/CREATININE RATIO 18.9 (6.6-38.0); CHLORIDE 114 MMOL/L (99-107); CREATININE 0.74 MG/DL (0.40-0.90); GLUCOSE 321 MG/DL (70-104); POTASSIUM 3.9 MMOL/L (3.5-5.1); SODIUM 143 MMOL/L (135-145); TOTAL CARBON DIOXIDE 17.8 MMOL/L (24-32); TOTAL PROTEIN 4.5 G/DL (6.4-8.2); eGFR 86 ML/MIN
[2022-01-09 19:52] LABS: CALCIUM 5.8 MG/DL (8.5-10.1)
--- NOTE | 2022-01-09 19:52 | NUR ---
DR IVEY AWARE OF PT'S CRITICAL CALCIUM REPORT
[2022-01-09] MEDS ORDERED: ondansetron/PF 4mg/2ml inj IV PRN (21:30)
[2022-01-09] MEDS ORDERED: morphine 2 MG/ML inj. syringe IV PRN ×2 (21:30)
[2022-01-09] MEDS ORDERED: acetaminophen 325mg tablet PO PRN (21:30)
[2022-01-09] MEDS ORDERED: MESSAGE TO PHARMACY PO ONE (21:35)
[2022-01-09] MEDS ORDERED: DEXTROSE 15 GM of carb/4 tabs (each vial/BOTTLE has 4 tablets) PO PRN ×2 (21:35)
[2022-01-09] MEDS ORDERED: glucagon, human recombinant 1mg kit SUBCUT PRN (21:35)
[2022-01-09] MEDS ORDERED: dextrose 50%-water 50ml dispensing syringe IV PRN ×2 (21:35)
[2022-01-09] MEDS ORDERED: PEG 3350/Na sulf,bicarb,Cl/KCl oral sol 4 liter bottle PO ONE (21:50)
[2022-01-09 22:10] LABS: HEMOGLOBIN A1C 8.6 % (4.5-6.2)
[2022-01-09] MEDS: normal saline 1000ml 1,000 ML IV SCH (23:40)
[2022-01-10] MEDS ORDERED: albuterol 2.5 MG/3 ML nebule NEB PRN (00:40)
--- NOTE | 2022-01-10 06:12 | NUR ---
Patient in room [facility]. I have received report from Arabelal PALUA in the ER and had the opportunity to ask questions and assume patient care. Pt arrived on the unit via gurney and was able to ambulate with assistance to her bed. She had her purse and stuffed elephant with her. She was on room air, her central line in her groin was saline locked. Pt had no signs of distress.
--- NOTE | 2022-01-10 06:14 | NUR ---
Problems reprioritized. Patient report given, questions answered & plan of care reviewed with Sri PAULA.
[2022-01-10 06:17] VITALS: BP 111/68
[2022-01-10 07:00] VITALS: BP 107/66
[2022-01-10 07:19] LABS: BASOPHILS # (AUTO) 0.1 X10'3 (0-0.2); EOSINOPHILS # (AUTO) 0.2 X10'3 (0-0.9); EOSINOPHILS % (AUTO) 1.6 % (0-6); HEMATOCRIT 32.7 % (35.0-45.0); HEMOGLOBIN 10.6 g/dl (12.0-16.0); LYMPHOCYTES # (AUTO) 3.3 X10'3 (1.1-4.8); MEAN CORPUSCULAR HEMOGLOBIN 29.2 PG (27.0-31.0); MEAN CORPUSCULAR HGB CONC 32.4 g/dL (33.0-36.5); MEAN CORPUSCULAR VOLUME 90.2 FL (78-98); MEAN PLATELET VOLUME 9.2 FL (7.4-10.4); MONOCYTES # (AUTO) 1.1 X10'3 (0-0.9); MONOCYTES % (AUTO) 7.4 % (2-12); NEUTROPHILS # (AUTO) 9.7 X10'3 (1.8-7.7); PLATELET COUNT 417 X10'3 (140-440); RED BLOOD COUNT 3.62 X10'6 (4.20-5.60); RED CELL DISTRIBUTION WIDTH 13.6 % (11.5-14.5); WHITE BLOOD COUNT 14.5 X10'3 (4.5-11.0)
[2022-01-10 07:35] LABS: ALANINE AMINOTRANSFERASE 46 U/L (12-78); ALBUMIN 2.4 G/DL (3.4-5.0); ALBUMIN/GLOBULIN RATIO 0.7 (1.1-1.5); ALKALINE PHOSPHATASE 76 IU/L (46-116); ANION GAP 11 (8-16); ASPARTATE AMINO TRANSFERASE 33 U/L (10-37); BILIRUBIN,TOTAL 0.3 MG/DL (0.1-1.0); BLOOD UREA NITROGEN 16 MG/DL (7-18); BUN/CREATININE RATIO 21.1 (6.6-38.0); CALCIUM 7.8 MG/DL (8.5-10.1); CHLORIDE 108 MMOL/L (99-107); CREATININE 0.76 MG/DL (0.40-0.90); GLUCOSE 242 MG/DL (70-104); POTASSIUM 4.7 MMOL/L (3.5-5.1); SODIUM 142 MMOL/L (135-145); TOTAL CARBON DIOXIDE 23.1 MMOL/L (24-32); TOTAL PROTEIN 5.8 G/DL (6.4-8.2); eGFR 84 ML/MIN
[2022-01-10] MEDS: venlafaxine XR 75mg capsule (Q24H) PO SCH (08:00)
[2022-01-10] MEDS: topiramate 100mg tablet PO SCH ×2 (08:00→20:08)
[2022-01-10] MEDS: pantoprazole 40MG/NS 100ML BAG 100 ML IV SCH (08:02)
[2022-01-10] MEDS: levoTHYROXINE 112mcg tablet PO SCH (08:02)
[2022-01-10] MEDS: haloperidol 5mg tablet PO SCH ×2 (08:03→20:09)
[2022-01-10] MEDS: gabapentin 300mg capsule PO SCH ×3 (08:03→20:08)
[2022-01-10] MEDS: normal saline 1000ml 1,000 ML IV SCH ×2 (08:06→15:47)
[2022-01-10] MEDS: insulin Lispro (HumaLOG) vial - multi-dose SQ SCH ×2 (08:13→20:12)
--- NOTE | 2022-01-10 10:36 | NUR ---
PAGER ID: [phone] MESSAGE: Georgette Blue 355B, Pt. stool has no blood in it but is not clear yet. H&H dropped from 15/45.9 to 10.6/32.7. Did you want q6 H&H labs? Sri [id number]
--- NOTE | 2022-01-10 10:38 | NUR ---
DM Consult: Noted pt A1c of 8.6. tax services intern provided verbal and written DM diet education and RD contact information. Addendum: 01/10/22 at 1038 by Mamadou Rosario - [employer]station [employer] RD Amended: Links added. Addendum: 01/10/22 at [address] I have reviewed assessment by property management intern
[2022-01-10] MEDS ORDERED: PEG 3350/Na sulf,bicarb,Cl/KCl oral sol 4 liter bottle PO ONE (10:50)
[2022-01-10 11:41] VITALS: BP 116/58
[2022-01-10 16:43] LABS: BASOPHILS # (AUTO) 0.1 X10'3 (0-0.2); BASOPHILS % (AUTO) 1.2 % (0-1); EOSINOPHILS # (AUTO) 0.4 X10'3 (0-0.9); EOSINOPHILS % (AUTO) 2.9 % (0-6); HEMATOCRIT 30.1 % (35.0-45.0); HEMOGLOBIN 9.9 g/dl (12.0-16.0); LYMPHOCYTES # (AUTO) 3.9 X10'3 (1.1-4.8); LYMPHOCYTES % (AUTO) 32.5 % (21-51); MEAN CORPUSCULAR HEMOGLOBIN 29.5 PG (27.0-31.0); MEAN CORPUSCULAR VOLUME 89.5 FL (78-98); MEAN PLATELET VOLUME 9.1 FL (7.4-10.4); MONOCYTES # (AUTO) 0.9 X10'3 (0-0.9); MONOCYTES % (AUTO) 7.2 % (2-12); NEUTROPHILS # (AUTO) 6.7 X10'3 (1.8-7.7); NEUTROPHILS % (AUTO) 56.2 % (42-75); PLATELET COUNT 416 X10'3 (140-440); RED BLOOD COUNT 3.37 X10'6 (4.20-5.60); RED CELL DISTRIBUTION WIDTH 13.8 % (11.5-14.5); WHITE BLOOD COUNT 11.9 X10'3 (4.5-11.0)
[2022-01-10] MEDS ORDERED: PROC5TAB10 PO (16:57)
[2022-01-10 18:00] VITALS: BP 117/66
--- NOTE | 2022-01-10 18:28 | NUR ---
Report given to Gertrude PAULA ortho float.
[2022-01-10] MEDS: insulin glargine (Lantus) pen - multi-dose SQ SCH (20:13)
[2022-01-11] VITALS (9 sets, daily range): BP systolic 108–134; BP diastolic 51–71
[2022-01-11] MEDS: normal saline 1000ml 1,000 ML IV SCH ×3 (01:59→23:22)
[2022-01-11] MEDS: insulin Lispro (HumaLOG) vial - multi-dose SQ SCH ×2 (02:05→19:47)
--- NOTE | 2022-01-11 06:00 | NUR ---
Patient in room [facility]. I have received report and had the opportunity to ask questions and assume patient care.
--- NOTE | 2022-01-11 06:06 | NUR ---
Report given to Eldon PAULA.
[2022-01-11 06:08] LABS: BASOPHILS # (AUTO) 0.1 X10'3 (0-0.2); BASOPHILS % (AUTO) 1.4 % (0-1); EOSINOPHILS # (AUTO) 0.4 X10'3 (0-0.9); EOSINOPHILS % (AUTO) 3.9 % (0-6); HEMATOCRIT 28.8 % (35.0-45.0); HEMOGLOBIN 9.4 g/dl (12.0-16.0); LYMPHOCYTES # (AUTO) 3.5 X10'3 (1.1-4.8); LYMPHOCYTES % (AUTO) 32.9 % (21-51); MEAN CORPUSCULAR HEMOGLOBIN 29.9 PG (27.0-31.0); MEAN CORPUSCULAR HGB CONC 32.8 g/dL (33.0-36.5); MEAN PLATELET VOLUME 9.5 FL (7.4-10.4); MONOCYTES # (AUTO) 0.9 X10'3 (0-0.9); MONOCYTES % (AUTO) 8.8 % (2-12); NEUTROPHILS # (AUTO) 5.6 X10'3 (1.8-7.7); PLATELET COUNT 425 X10'3 (140-440); RED BLOOD COUNT 3.16 X10'6 (4.20-5.60); RED CELL DISTRIBUTION WIDTH 14.2 % (11.5-14.5); WHITE BLOOD COUNT 10.5 X10'3 (4.5-11.0)
[2022-01-11] MEDS ORDERED: fentaNYL/PF 50MCG/1 ML 2ML syringe ONE (06:55)
[2022-01-11] MEDS ORDERED: diphenhydrAMINE 50 mg/ml inj ONE (06:55)
[2022-01-11] MEDS ORDERED: MIDAZolam 1 MG/ML 5ML VIAL ONE (06:55)
--- NOTE | 2022-01-11 07:00 | NUR ---
Pt saline locked, taken to GI lab
--- NOTE | 2022-01-11 08:00 | NUR ---
in GI lab, unable to check Glood glucose Addendum: 01/11/22 at 0902 by Mo Dunlap RN Amended: Links added.
[2022-01-11 10:02] LABS: ALANINE AMINOTRANSFERASE 43 U/L (12-78); ALBUMIN 2.3 G/DL (3.4-5.0); ALBUMIN/GLOBULIN RATIO 0.7 (1.1-1.5); ANION GAP 6 (8-16); ASPARTATE AMINO TRANSFERASE 22 U/L (10-37); BILIRUBIN,TOTAL 0.2 MG/DL (0.1-1.0); BLOOD UREA NITROGEN 10 MG/DL (7-18); BUN/CREATININE RATIO 17.5 (6.6-38.0); CHLORIDE 110 MMOL/L (99-107); CREATININE 0.57 MG/DL (0.40-0.90); GLUCOSE 144 MG/DL (70-104); POTASSIUM 4.4 MMOL/L (3.5-5.1); SODIUM 142 MMOL/L (135-145); TOTAL PROTEIN 5.4 G/DL (6.4-8.2); eGFR > 90 ML/MIN
--- NOTE | 2022-01-11 10:31 | NUR ---
wendy returned from GI lab, report from Cindy PAULA. A&Ox4, Post procedure VS initiated, IV fluids resumed, Ok to give clear liquid diet
[2022-01-11] MEDS: pantoprazole 40MG/NS 100ML BAG 100 ML IV SCH (10:39)
[2022-01-11] MEDS: levoTHYROXINE 112mcg tablet PO SCH (10:39)
[2022-01-11] MEDS: gabapentin 300mg capsule PO SCH ×3 (10:39→21:31)
[2022-01-11] MEDS: haloperidol 5mg tablet PO SCH ×2 (10:40→19:44)
[2022-01-11] MEDS: topiramate 100mg tablet PO SCH ×2 (10:40→19:44)
[2022-01-11] MEDS: venlafaxine XR 75mg capsule (Q24H) PO SCH (10:40)
--- NOTE | 2022-01-11 18:10 | NUR ---
Patient in room [facility]. I have received report from NISA Colón and had the opportunity to ask questions and assume patient care.
[2022-01-11] MEDS: insulin glargine (Lantus) pen - multi-dose SQ SCH (21:31)
[2022-01-12] VITALS: BP 111/76
--- NOTE | 2022-01-12 06:15 | NUR ---
Patient in room [facility]. I have received report from Rosita PAULA and had the opportunity to ask questions and assume patient care.
[2022-01-12] MEDS: haloperidol 5mg tablet PO SCH (07:33)
[2022-01-12] MEDS: gabapentin 300mg capsule PO SCH ×2 (07:33→13:47)
[2022-01-12] MEDS: levoTHYROXINE 112mcg tablet PO SCH (07:33)
[2022-01-12] MEDS: venlafaxine XR 75mg capsule (Q24H) PO SCH (07:33)
[2022-01-12] MEDS: pantoprazole 40MG/NS 100ML BAG 100 ML IV SCH (07:33)
[2022-01-12] MEDS: topiramate 100mg tablet PO SCH (07:33)
[2022-01-12 08:00] VITALS: BP 111/64
[2022-01-12 08:32] LABS: BASOPHILS # (AUTO) 0.1 X10'3 (0-0.2); EOSINOPHILS # (AUTO) 0.4 X10'3 (0-0.9); EOSINOPHILS % (AUTO) 4.6 % (0-6); HEMATOCRIT 26.8 % (35.0-45.0); HEMOGLOBIN 8.8 g/dl (12.0-16.0); MEAN CORPUSCULAR HEMOGLOBIN 29.9 PG (27.0-31.0); MEAN CORPUSCULAR HGB CONC 32.8 g/dL (33.0-36.5); MEAN CORPUSCULAR VOLUME 91.4 FL (78-98); MEAN PLATELET VOLUME 9.3 FL (7.4-10.4); MONOCYTES % (AUTO) 10.3 % (2-12); NEUTROPHILS # (AUTO) 4.9 X10'3 (1.8-7.7); NEUTROPHILS % (AUTO) 52.1 % (42-75); PLATELET COUNT 440 X10'3 (140-440); RED BLOOD COUNT 2.94 X10'6 (4.20-5.60); WHITE BLOOD COUNT 9.4 X10'3 (4.5-11.0)
[2022-01-12] MEDS: normal saline 1000ml 1,000 ML IV SCH (09:30)
[2022-01-12 09:38] LABS: ALBUMIN 2.3 G/DL (3.4-5.0); ALBUMIN/GLOBULIN RATIO 0.7 (1.1-1.5); ALKALINE PHOSPHATASE 74 IU/L (46-116); ANION GAP 9 (8-16); ASPARTATE AMINO TRANSFERASE 15 U/L (10-37); BILIRUBIN,TOTAL 0.1 MG/DL (0.1-1.0); BLOOD UREA NITROGEN 5 MG/DL (7-18); BUN/CREATININE RATIO 9.8 (6.6-38.0); CALCIUM 8.2 MG/DL (8.5-10.1); CHLORIDE 109 MMOL/L (99-107); CREATININE 0.51 MG/DL (0.40-0.90); GLUCOSE 76 MG/DL (70-104); POTASSIUM 4.2 MMOL/L (3.5-5.1); SODIUM 143 MMOL/L (135-145); TOTAL CARBON DIOXIDE 24.7 MMOL/L (24-32); TOTAL PROTEIN 5.6 G/DL (6.4-8.2); eGFR > 90 ML/MIN
[2022-01-12] MEDS: insulin Lispro (HumaLOG) vial - multi-dose SQ SCH (09:38)
[2022-01-12 09:48] LABS: ALANINE AMINOTRANSFERASE 35 U/L (12-78)
--- NOTE | 2022-01-12 14:45 | NUR ---
patient discharged, Central line DC'd intact. Wheelchair with staff downstairs
== END 2022-01-12 14:30 | disposition home or self-care (01) | DRG 254 ==
LOC: ER 15:51 → ED HOLD 21:31 → SUR 3N 01-10 05:24
PROVIDERS: ADMIT Internal Medicine; ATTEND Internal Medicine
PROC: 06HY33Z Insertion of Infusion Device into Lower Vein, Percutaneous Approach (ICD-10-PCS; 2022-01-09)
PROC: B54BZZA Ultrasonography of Right Lower Extremity Veins, Guidance (ICD-10-PCS; 2022-01-09)
PROC: 0DBP8ZX Excision of Rectum, Via Natural or Artificial Opening Endoscopic, Diagnostic (ICD-10-PCS; principal; 2022-01-11)
DX: K92.1 Melena (principal); D62 Acute posthemorrhagic anemia; I95.9 Hypotension, unspecified; E03.9 Hypothyroidism, unspecified; E11.65 Type 2 diabetes mellitus with hyperglycemia; D49.0 Neoplasm of unspecified behavior of digestive system; I48.0 Paroxysmal atrial fibrillation; G43.909 Migraine, unspecified, not intractable, without status migrainosus; F20.9 Schizophrenia, unspecified; F31.9 Bipolar disorder, unspecified; E66.01 Morbid (severe) obesity due to excess calories; F12.90 Cannabis use, unspecified, uncomplicated; F41.9 Anxiety disorder, unspecified; M54.9 Dorsalgia, unspecified; F41.0 Panic disorder [episodic paroxysmal anxiety]; G89.29 Other chronic pain; I25.10 Atherosclerotic heart disease of native coronary artery without angina pectoris; Z79.4 Long term (current) use of insulin; Z79.899 Other long term (current) drug therapy; Z90.411 Acquired partial absence of pancreas; Z90.81 Acquired absence of spleen; Z68.42 Body mass index [BMI] 45.0-49.9, adult; Z88.2 Allergy status to sulfonamides; Z88.8 Allergy status to other drugs, medicaments and biological substances; Z91.041 Radiographic dye allergy status; Z88.0 Allergy status to penicillin; Z91.013 Allergy to seafood; Z90.49 Acquired absence of other specified parts of digestive tract; Z79.890 Hormone replacement therapy
CPT/HCPCS: 36415; 45380; 71045; 74176; 80053; 80305; 81001; 81025; 82948; 83036; 84145; 84702; 85025; 85610; 85730; 86885; 86900; 86901; 87081; 87088; 93005; 99152; 99153; 99285; A4620; C9113; G0378; J0696; J1200; J1815; J2250; J2405; J3010; J3490; J7030; J7040